=== PATIENT | male | born 1990 | race African-American/Black ===

== ENCOUNTER 2016-08-27 16:16 | Emergency (ER) | payer SELFPAY ==
[2016-08-27 16:22] VITALS: BMI 24.3
--- NOTE | 2016-08-27 16:28 | PDOC ---
History of Present Illness - General Chief Complaint: Nausea/Vomiting Stated Complaint: NUASEA/VOMITING Time Seen by Provider: 08/27/16 16:26 History Source: Patient Exam Limitations: No Limitations - History of Present Illness Travel History: Yes (1 week in [facility]) Timing/Duration: reports: changing over time Quality: reports: moderate Abdominal Pain Onset Location: reports: epigastric Pain Radiation: reports: no radiation Activities at Onset: reports: none Aggravating Factors: improves with: Eating Past History - Past Medical History Allergies/Adverse Reactions: Allergies Allergy/AdvReac Type Severity Reaction Status Date / Time No Known Allergies Allergy Verified 08/27/16 16:17 Home Medications: Ambulatory Orders Ondansetron [Zofran Odt -] 4 mg SL TID PRN #12 od.tablet 08/27/16 Ondansetron [Zofran Odt -] 4 mg SL TID PRN #12 od.tablet 08/27/16 GI Disorders: Yes (gastric ulcer) - Psycho/Social/Smoking Cessation Hx Anxiety: No Suicidal Ideation: No Smoking History: Never smoked Have you smoked in the past 12 months: No Information on smoking cessation initiated: No Substance Use Type: Alcohol Review of Systems - Review of Systems Able to Perform ROS?: Yes Is the patient limited Luxembourgish proficient: No Constitutional: Yes: Weakness HEENTM: No: Symptoms Reported, See HPI, Eye Pain, Blurred Vision, Tearing, Recent change in vision, Double Vision, Cataracts, Ear Pain, Ocular Prothesis, Ear Discharge, Nose Pain, Nose Congestion, Tinnitus, Nose Bleeding, Hearing Loss , Throat Pain, Throat Swelling, Mouth Pain, Dental Problems, Difficulty Swallowing, Mouth Swelling, Other Respiratory: No: Symptoms reported, See HPI, Cough, Orthopnea, Shortness of Breath, SOB with Exertion, SOB at Rest, Stridor, Wheezing, Productive cough, Hemoptysis, Other Cardiac (ROS): No: Symptoms Reported, See HPI, Chest Pain, Edema, Irregular Heart Rate, Lightheadedness, Palpitations, Syncope, Chest Tightness, Other ABD/GI: Yes: Diarrhea, Nausea, Poor Fluid Intake, Vomiting : No: Symptoms Reported, See HPI, Burning, Dysuria, Discharge, Frequency, Flank Pain, Hematuria, Incontinence, Pain, Urgency, Testicular Mass, Testicular Swelling, Lesions, Testicular Pain, Other Musculoskeletal: No: Symptoms Reported, See HPI, Back Pain, Gout, Joint Pain, Joint Swelling, Muscle Pain, Muscle Weakness, Neck Pain, Joint Stiffness, Other Neurological: No: Symptoms reported, See HPI, Headache, Numbness, Paresthesia, Pre-Existing Deficit, Seizure, Tingling, Tremors, Weakness, Unsteady Gait, Ataxia, Dizziness, Other Psychiatric: No: Anxiety, Depression, Frequent Crying, Stressors, Sleep Pattern Change, Emotional Problems, Mood Swings, Change in Appetite, Other Endocrine: No: Symptoms Reported, See HPI, Excessive Sweating, Flushing, Intolerance to Cold, Intolerance to Heat, Increased Hunger, Increased Thirst, Increased Urine, Unexplained Weight Gain, Unexplained Weight Loss, Change in Weight, Other *Physical Exam - Vital Signs Last Vital Signs Temp Pulse Resp BP Pulse Ox 98.3 F 69 18 137/83 100 08/27/16 16:17 08/27/16 16:17 08/27/16 16:17 08/27/16 16:17 08/27/16 16:17 - Physical Exam General Appearance: Yes: Mild Distress, Thin HEENT: positive: Normal ENT Inspection, Normal Voice Neck: positive: Supple Respiratory/Chest: positive: Lungs Clear Cardiovascular: positive: Regular Rhythm, Regular Rate Vascular Pulses: Femoral (R): 2+, Femoral (L): 2+ Gastrointestinal/Abdominal: positive: Other (mild epigastric discomfort) Rectal Exam: positive: deferred Musculoskeletal: positive: Normal Inspection Extremity: positive: Normal Inspection, Normal Range of Motion Integumentary: positive: Normal Color, Warm Neurologic: positive: Fully Oriented, Alert, Motor Strength 5/5 ED Treatment Course - LABORATORY CBC & Chemistry Diagram: 08/27/16 16:40 08/27/16 16:40 *DC/Admit/Observation/Transfer Diagnosis at time of Disposition: Alcoholic hepatitis Qualifiers: Ascites presence: without ascites Qualified Code(s): K70.10 - Alcoholic hepatitis without ascites Gastritis Qualifiers: Gastritis type: other gastritis Chronicity: acute Gastritis bleeding: without bleeding Qualified Code(s): K29.00 - Acute gastritis without bleeding - Discharge Dispostion Disposition: HOME - Prescriptions Prescriptions: Ondansetron [Zofran Odt -] 4 mg SL TID PRN #12 od.tablet PRN Reason: Nausea And/Or Vomiting Ondansetron [Zofran Odt -] 4 mg SL TID PRN #12 od.tablet PRN Reason: Nausea And/Or Vomiting - Patient Instructions Printed Discharge Instructions: DI for Nausea -- Adult - Post Discharge Activity Work/School Note: Back to Work
[2016-08-27] MEDS ORDERED: SODIUM CHLORIDE 1,000 ML IV STA ×2 (16:29→18:05)
[2016-08-27] MEDS ORDERED: ONDANSETRON 4 MG/2 ML VIAL IVPB ONE ×2 (16:29→19:54)
[2016-08-27] MEDS ORDERED: ONDANSETRON 4 MG/2 ML VIAL ONE ×2 (16:59→20:06)
[2016-08-27 17:21] LABS: BASOPHIL 0.8 % (0-2.0); MCH 26.3 pg (25.7-33.7); MEAN CELL VOLUME 82.2 fl (80-96); MEAN PLT VOLUME 8.8 fl (7.5-11.1); PLATELET COUNT 243 K/MM3 (134-434); RDW 13.7 % (11.9-15.9); WHITE BLOOD COUNT 9.4 K/mm3 (4.0-10.0)
[2016-08-27] MEDS ORDERED: METOCLOPRAMIDE HCL INJECTION 10 MG/2 ML VIAL IVPUSH ONE (17:57)
[2016-08-27] MEDS ORDERED: SODIUM CHLORIDE 0.9% 1000 ML INFUS.BAG IV ONE (18:00)
[2016-08-27 18:02] LABS: URINE APPEARANCE CLEAR; URINE BILIRUBIN NEGATIVE (NEGATIVE); URINE BLOOD NEGATIVE (NEGATIVE); URINE COLOR YELLOW; URINE GLUCOSE (UA) NEGATIVE (NEGATIVE); URINE KETONE 1+ (NEGATIVE); URINE LEUK ESTERASE NEGATIVE (NEGATIVE); URINE NITRITE NEGATIVE (NEGATIVE); URINE PROTEIN NEGATIVE (NEGATIVE); URINE UROBILINOGEN NEGATIVE E.U./dl (0.2-1.0)
[2016-08-27] MEDS ORDERED: PANTOPRAZOLE SODIUM 40 MG in SODIUM CHLORIDE 100 ML IVPB ONE (18:05)
[2016-08-27] MEDS ORDERED: METOCLOPRAMIDE HCL INJECTION 10 MG/2 ML VIAL ONE (18:06)
[2016-08-27] MEDS ORDERED: PANTOPRAZOLE SODIUM 100 ML IVPB ONE (18:22)
[2016-08-27 18:29] LABS: ALBUMIN 4.8 g/dl (3.4-5.0); ANION GAP 12 (8-16); BILIRUBIN,TOTAL 0.8 mg/dL (0.2-1.0); CALCIUM 10.3 mg/dL (8.5-10.1); CO2 26 mmol/L (21-32); CREATININE 1.2 mg/dL (0.7-1.3); GLUCOSE,RANDOM 76 mg/dL (74-106); SGOT/AST 121 U/L (15-37); SGPT/ALT 51 U/L (12-78); TOT PROT 8.4 g/dl (6.4-8.2)
[2016-08-27 18:30] LABS: ALK PHOS 55 U/L (45-117)
--- NOTE | 2016-08-27 18:57 | PDOC ---
History of Present Illness - General Chief Complaint: Nausea/Vomiting Stated Complaint: NUASEA/VOMITING Time Seen by Provider: 08/27/16 16:26 History Source: Patient - History of Present Illness Initial Comments: 08/27/16 18:56 26 year old previous healthy male without any significant past medical history presenting with three days of nausea, vomiting, and abdominal pain after a few days of heavy drinking and unprotected sex. He has had bilious but non-bloody emesis with decreased appetite but without diarrhea. Denies fevers, chills, cough, chest pain, palpitations or other symptoms. 08/27/16 18:59 Past History - Past Medical History Allergies/Adverse Reactions: Allergies Allergy/AdvReac Type Severity Reaction Status Date / Time No Known Allergies Allergy Verified 08/27/16 16:17 Home Medications: Ambulatory Orders NK [No Known Home Medication] 08/27/16 GI Disorders: Yes (gastric ulcer) - Psycho/Social/Smoking Cessation Hx Anxiety: No Suicidal Ideation: No Smoking History: Never smoked Have you smoked in the past 12 months: No Information on smoking cessation initiated: No Substance Use Type: Alcohol Review of Systems - Review of Systems Constitutional: Yes: Loss of Appetite. No: Chills, Diaphoresis, Fever HEENTM: No: Eye Pain, Blurred Vision, Tearing Respiratory: No: Cough, Orthopnea, Shortness of Breath Cardiac (ROS): No: Chest Pain, Edema, Irregular Heart Rate, Lightheadedness ABD/GI: No: Abdominal Distended, Abd. Pain w/ defecation, Blood Streaked Bowels , Constipated, Diarrhea : No: Burning, Dysuria, Discharge, Frequency Integumentary: No: Bruising Neurological: Yes: Headache. No: Numbness, Paresthesia, Seizure, Weakness Psychiatric: No: Anxiety Endocrine: No: Symptoms Reported *Physical Exam - Vital Signs Last Vital Signs Temp Pulse Resp BP Pulse Ox 98.3 F 69 18 137/83 100 08/27/16 16:17 08/27/16 16:17 08/27/16 16:17 08/27/16 16:17 08/27/16 16:17 - Physical Exam General Appearance: Yes: Appropriately Dressed, Mild Distress HEENT: positive: EOMI, CAROLIN, Normal ENT Inspection, Normal Voice Respiratory/Chest: positive: Lungs Clear, Normal Breath Sounds, Respiratory Distress, Accessory Muscle Use Cardiovascular: positive: Regular Rhythm, Regular Rate, Edema Gastrointestinal/Abdominal: positive: Normal Bowel Sounds, Tender (tender in his epigastrium and left upper quadrant), Flat, Soft. 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, Fully Oriented, Alert, Normal Mood/ Affect, Normal Response ED Treatment Course - LABORATORY CBC & Chemistry Diagram: 08/27/16 16:40 08/27/16 16:40 - ADDITIONAL ORDERS Additional order review: Laboratory Results 08/27/16 16:40 Sodium 141 Potassium 3.9 Chloride 103 Carbon Dioxide 26 Anion Gap 12 BUN 20 H Creatinine 1.2 Creat Clearance w eGFR > 60 Random Glucose 76 Calcium 10.3 H Total Bilirubin 0.8 AST 121 H ALT 51 Alkaline Phosphatase 55 Total Protein 8.4 H Albumin 4.8 Lipase 116 08/27/16 16:40 RBC 5.28 MCV 82.2 MCHC 32.0 RDW 13.7 MPV 8.8 Neutrophils % 69.0 Lymphocytes % 25.4 Monocytes % 4.8 Eosinophils % 0.0 Basophils % 0.8 - Medications Given in the ED: ED Medications Discontinued Medications Generic Name Dose Route Start Last Admin Trade Name Freq PRN Reason Stop Dose Admin Diphenhydramine HCl 25 mg 08/27/16 17:56 08/27/16 18:12 Benadryl Injection - IVPUSH 08/27/16 17:57 25 mg ONCE ONE Administration Sodium Chloride 1,000 mls @ 1,000 mls/hr 08/27/16 16:29 08/27/16 16:58 Normal Saline - IV 08/27/16 17:28 1,000 mls/hr ASDIR STA Administration Pantoprazole Sodium 40 mg/ 100 mls @ 200 mls/hr 08/27/16 18:05 08/27/16 18:30 Sodium Chloride IVPB 08/27/16 18:34 200 mls/hr ONCE ONE Administration Metoclopramide HCl 10 mg 08/27/16 17:57 08/27/16 18:12 Reglan Injection - IVPUSH 08/27/16 17:58 10 mg ONCE ONE Administration Ondansetron HCl 4 mg 08/27/16 16:29 08/27/16 16:58 Zofran Injection IVPB 08/27/16 16:30 4 mg ONCE ONE Administration Sodium Chloride 1,000 ml 08/27/16 18:00 08/27/16 18:12 Normal Saline - IV 08/27/16 18:01 1,000 ml ONCE ONE Administration Medical Decision Making - Critical Care Time Total Critical Care Time (minutes): 30 Critical Care Statement: The care of this patient involved high complexity decision making to prevent further life threatening deterioration of the patient 's condition and/or to evalute & treat vital organ system(s) failure or risk of failure. - Medical Decision Making 08/27/16 19:06 Patient is a young healthy male with no pas medical history presenting with gastritis without enteritis in the setting of significant alcohol consumption most concerning for alcoholic pancreatitis vs. alcoholic hepatitis vs. acute viral hepatitis. Labs returned WNL with the exception of his AST at 121 with a normal ALT. This indicates alcoholic hepatitis. Viral hepatitis labs will be sent to have on record in case he does not have complete resolution of his symptoms. The patient was signed out to Dr. Alise Villa at 19: 00. 08/27/16 19:11 *DC/Admit/Observation/Transfer Diagnosis at time of Disposition: Alcoholic hepatitis
--- NOTE | 2016-08-27 19:07 | PDOC ---
*Physical Exam - Vital Signs Last Vital Signs Temp Pulse Resp BP Pulse Ox 98.3 F 69 18 137/83 100 08/27/16 16:17 08/27/16 16:17 08/27/16 16:17 08/27/16 16:17 08/27/16 16:17 ED Treatment Course - LABORATORY CBC & Chemistry Diagram: 08/27/16 16:40 08/27/16 16:40 - ADDITIONAL ORDERS Additional order review: Laboratory Results 08/27/16 16:40 Sodium 141 Potassium 3.9 Chloride 103 Carbon Dioxide 26 Anion Gap 12 BUN 20 H Creatinine 1.2 Creat Clearance w eGFR > 60 Random Glucose 76 Calcium 10.3 H Total Bilirubin 0.8 AST 121 H ALT 51 Alkaline Phosphatase 55 Total Protein 8.4 H Albumin 4.8 Lipase 116 08/27/16 16:40 RBC 5.28 MCV 82.2 MCHC 32.0 RDW 13.7 MPV 8.8 Neutrophils % 69.0 Lymphocytes % 25.4 Monocytes % 4.8 Eosinophils % 0.0 Basophils % 0.8 - Medications Given in the ED: ED Medications Discontinued Medications Generic Name Dose Route Start Last Admin Trade Name Freq PRN Reason Stop Dose Admin Diphenhydramine HCl 25 mg 08/27/16 17:56 08/27/16 18:12 Benadryl Injection - IVPUSH 08/27/16 17:57 25 mg ONCE ONE Administration Sodium Chloride 1,000 mls @ 1,000 mls/hr 08/27/16 16:29 08/27/16 16:58 Normal Saline - IV 08/27/16 17:28 1,000 mls/hr ASDIR STA Administration Pantoprazole Sodium 40 mg/ 100 mls @ 200 mls/hr 08/27/16 18:05 08/27/16 18:30 Sodium Chloride IVPB 08/27/16 18:34 200 mls/hr ONCE ONE Administration Metoclopramide HCl 10 mg 08/27/16 17:57 08/27/16 18:12 Reglan Injection - IVPUSH 08/27/16 17:58 10 mg ONCE ONE Administration Ondansetron HCl 4 mg 08/27/16 16:29 08/27/16 16:58 Zofran Injection IVPB 08/27/16 16:30 4 mg ONCE ONE Administration Sodium Chloride 1,000 ml 08/27/16 18:00 08/27/16 18:12 Normal Saline - IV 08/27/16 18:01 1,000 ml ONCE ONE Administration Medical Decision Making - Medical Decision Making Assumed care from Dr. Ortiz Bolaños at 1900. The patient is a 26 yo male just returned from a trip to [place] during which he describes drinking large amounts of alcohol, became very nauseated on return home about 3 days ago. Here in the ED initial dose of Zofran did not provide relief. Subsequent combination of Reglan and Benadryl was given and will now monitor for resolution of nausea. Notably, the patient did have AST elevation and >2:1 ratio of AST:ALT, reportedly epigastric tenderness as well. Orders are entered for hepatitis panel. Most likely this is alcoholic hepatitis with a likely component of gastritis. 08/27/16 22:49 Nausea did not resolve with Benadryl/Reglan combination. One dose of Zofran 8 mg IV given, followed by one dose of Dilaudid 0.5 mg and Mylanta, with relief of symptoms. The patient is able to keep down ice chips and water and appears much improved. He is appropriate for outpatient followup with Rx for Zofran ODT and follow up with his PCP. He is advised to be on liquid diet until Saturday, when he should start the BRAT diet. *DC/Admit/Observation/Transfer Diagnosis at time of Disposition: Alcoholic hepatitis Qualifiers: Ascites presence: without ascites Qualified Code(s): K70.10 - Alcoholic hepatitis without ascites Gastritis Qualifiers: Gastritis type: other gastritis Chronicity: acute Gastritis bleeding: without bleeding Qualified Code(s): K29.00 - Acute gastritis without bleeding - Discharge Dispostion Disposition: HOME Condition at time of disposition: Stable Admit: No - Prescriptions Prescriptions: Ondansetron [Zofran Odt -] 4 mg SL TID PRN #12 od.tablet PRN Reason: Nausea And/Or Vomiting - Patient Instructions Printed Discharge Instructions: DI for Nausea -- Adult - Post Discharge Activity Work/School Note: Back to Work - Attestations Physician Attestion: 08/27/16 23:05 I, Dr. Alise Villa, attest that this document has been prepared under my direction and personally reviewed by me in its entirety. I further attest, that it accurately reflects all work, treatment, procedures and medical decision -making performed by me.
[2016-08-27] MEDS ORDERED: SODIUM CHLORIDE 500 ML IV STA (20:08)
--- NOTE | 2016-08-27 21:03 | PDOC ---
Attending Attestation - Resident Resident Name: Alise Villa - HPI HPI: 08/27/16 21:00 26 yo male who has had several days of gastritis following a week of binge drinking in [facility]. He states he had a h/o Gi ulcers as a teenage -he was seen at another hospital last night but still was symptomatic 08/27/16 23:23 no rebound or guarding on exam but some periumbilical tenderness/lungs cta b/l, [id number] - Physicial Exam PE: 08/27/16 23:25 no rebound or guarding but persistent periumbilcal tenderness - Medical Decision Making 08/27/16 23:24 pt recieved IVF, anti emetics,had persistent c/o pain. CT SCAN negative. RX hodan KLEIN .
[2016-08-27] MEDS ORDERED: MAG HYDROX/AL HYDROX/SIMETH 30 ML UNIT-DOSE CUP PO ONE (21:15)
[2016-08-27] MEDS ORDERED: HYDROmorphone HCL CARPU-JECT 1 MG/1 ML DISP.SYRIN IVPUSH ONE (21:15)
[2016-08-27] MEDS ORDERED: HYDROmorphone HCL CARPU-JECT 1 MG/1 ML DISP.SYRIN ONE (21:22)
[2016-08-27] MEDS ORDERED: MAG HYDROX/AL HYDROX/SIMETH 30 ML UNIT-DOSE CUP ONE (21:25)
[2016-08-27 21:32] VITALS: BP 134/72; PULSE 61; TEMP 98.9
--- NOTE | 2016-08-28 13:46 | EKG ---
Test Reason : Blood Pressure : / mmHG Vent. Rate : 070 BPM Atrial Rate : 070 BPM P-R Int : 186 ms QRS Dur : 098 ms QT Int : 414 ms P-R-T Axes : 061 058 035 degrees QTc Int : 447 ms NORMAL SINUS RHYTHM WITH IACD BORDERLINE IVCD NO PREVIOUS ECGS AVAILABLE PLEASE CORELATE CLINICALLY AND REPEAT IF INDICATED Confirmed by BRITTANY CHAVIRA MD ([id number]) on 08/28/2016 1:45:38 PM Referred By: Confirmed By:BRITTANY CHAVIRA MD
[2016-08-29 14:11] LABS: HEP B SURFACE AB Non Reactive (.)
== END 2016-08-27 23:32 | disposition home or self-care (01) ==
LOC: JER 16:16
PROC: 3E0337Z Introduction of Electrolytic and Water Balance Substance into Peripheral Vein, Percutaneous Approach (ICD-10-PCS; principal; 2016-08-27)
PROC: 3E033GC Introduction of Other Therapeutic Substance into Peripheral Vein, Percutaneous Approach (ICD-10-PCS; 2016-08-27)
PROC: 3E033GC Introduction of Other Therapeutic Substance into Peripheral Vein, Percutaneous Approach (ICD-10-PCS; 2016-08-27)
PROC: 3E033GC Introduction of Other Therapeutic Substance into Peripheral Vein, Percutaneous Approach (ICD-10-PCS; 2016-08-27)
DX: K29.20 Alcoholic gastritis without bleeding (principal); K70.10 Alcoholic hepatitis without ascites; F10.10 Alcohol abuse, uncomplicated
CPT/HCPCS: 36415; 74160-TC; 80053; 81003; 83690; 85025; 86704; 86706; 86708; 86790; 87340; 93005; 93010; 99283-25

== ENCOUNTER 2017-07-12 11:57 | Emergency (ER) | payer SELFPAY ==
[2017-07-12 12:19] VITALS: TEMP 97.4; BMI 23.7
[2017-07-12] MEDS ORDERED: SODIUM CHLORIDE 1,000 ML IV STA (13:06)
[2017-07-12] MEDS ORDERED: PANTOPRAZOLE SODIUM 40 MG VIAL IVPUSH ONE (13:06)
[2017-07-12] MEDS ORDERED: ONDANSETRON 4 MG/2 ML VIAL IVPUSH ONE (13:06)
[2017-07-12] MEDS ORDERED: LIDOCAINE VISCOUS 2% ORAL/TOP 20 ML UNIT-DOSE CUP MM ONE (13:06)
[2017-07-12] MEDS ORDERED: MAG HYDROX/AL HYDROX/SIMETH 30 ML UNIT-DOSE CUP PO ONE (13:06)
[2017-07-12] MEDS ORDERED: FAMOTIDINE IV 20 MG/12 ML VIAL IVPUSH ONE (13:07)
--- NOTE | 2017-07-12 13:11 | PDOC ---
History of Present Illness - General Chief Complaint: Nausea/Vomiting Stated Complaint: ABD PAIN, NAUSEA Time Seen by Provider: 07/12/17 12:29 History Source: Patient, Parent(s) Exam Limitations: No Limitations - History of Present Illness Initial Comments: CHIEF COMPLAINT: 26 y/o male with PMH stomach ulcers (supposed to be taking daily meds but doesn't) c/o nausea, abdominal pain and vomiting x 5 hours. HISTORY OF PRESENT ILLNESS: The patient eats a mostly vegan diet but had a turkey burger last night. He states he started feeling ill in the middle of the night while at work. He denies fever, CP, SOB, back pain, hematuria, dysuria. Vital signs on arrival are notable for respiratory rate of 28. REVIEW OF SYSTEMS: GENERAL/CONSTITUTIONAL: No fever/chills. No weakness. No weight change. HEAD, EYES, EARS, NOSE AND THROAT: No change in vision. No ear pain or discharge. No sore throat. CARDIOVASCULAR: No chest pain or shortness of breath. RESPIRATORY: No cough, wheezing, or hemoptysis. GASTROINTESTINAL: +abdominal pain, nausea, vomiting. No diarrhea. No constipation. GENITOURINARY: No dysuria, frequency, or change in urination. MUSCULOSKELETAL: No joint or muscle swelling or pain. No neck or back pain. SKIN: No rash or easy bruising. NEUROLOGIC: No headache, vertigo, loss of consciousness, or loss of sensation. PHYSICAL EXAM: GENERAL: The patient is awake, alert, and fully oriented, rocking back and forth and moaning in pain while clutching his stomach. CV: RRR, S1/S2, no MRG. Cap refill < 2 sec. ABDOMEN: Soft, non-distended, TTP of epigastric region with guarding. EXTREMITIES: Normal range of motion, no edema. NEUROLOGICAL: Normal speech, normal gait. CN II-XII grossly intact. SKIN: Warm, dry, normal turgor, no rashes or lesions noted. Past History - Past Medical History Allergies/Adverse Reactions: Allergies Allergy/AdvReac Type Severity Reaction Status Date / Time No Known Allergies Allergy Verified 07/12/17 12:06 Home Medications: Ambulatory Orders NK [No Known Home Medication] 07/12/17 COPD: No GI Disorders: Yes (gastric ulcer) - Suicide/Smoking/Psychosocial Hx Smoking History: Current some day smoker Have you smoked in the past 12 months: No Number of Cigarettes Smoked Daily: 4 Information on smoking cessation initiated: No Hx Alcohol Use: No Substance Use Type: Alcohol *Physical Exam - Vital Signs Last Vital Signs Temp Pulse Resp BP Pulse Ox 97.4 F L 81 28 H 131/93 100 07/12/17 12:06 07/12/17 12:06 07/12/17 12:06 07/12/17 12:06 07/12/17 12:06 ED Treatment Course - LABORATORY CBC & Chemistry Diagram: 07/12/17 13:10 07/12/17 13:10 Medical Decision Making - Medical Decision Making A/P: 26 y/o male with gastritis symptoms. Plan is as follows: 1. Labs 2. IV fluids 3. IV protonix/pepcid/zofran 4. PO maalox/viscous lido 5. reassess Patient signed out to Dr. Hernandez *DC/Admit/Observation/Transfer Diagnosis at time of Disposition: Nausea & vomiting, Epigastric pain, Leukocytosis - Discharge Dispostion Disposition: HOME Condition at time of disposition: Stable - Referrals - Patient Instructions Printed Discharge Instructions: DI for Vomiting -- Adult Additional Instructions: You were seen in the ER for upper abdominal pain. We did lab work on your blood and urine and found no abnormalities except a mildly elevated white blood cell count. We took an electrocardiogram which showed no concerning findings on your heart activity. We did a chest x-ray which was also normal. We did an abdominal ultrasound which was also normal. After our assessment, we do not believe you are having a medical emergency at this time, and we believe you are safe to go home. Please take [id number] medications for the pain, and you can try an [id number] antacid like omeprazole 20 mg once a day. 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 Call their clinic [facility], tell them you were seen in the ER, and tell them you need an appointment. Please also follow up with your regular doctor in 1-3 days. Talk with them about your elevated white blood cell count of 12.7k, and have your blood work re-checked. Please come back to the ER at any time, 24 hours a day, for any new or worsening symptoms, like worsened abdominal pain, fever, inability to have a bowel movement or pass gas, chest pain, palpitations , or other symptoms. If you are having severe or life threatening symptoms, or symptoms that make it unsafe to drive or have someone drive you, please call 911. - Post Discharge Activity
[2017-07-12] MEDS ORDERED: PANTOPRAZOLE SODIUM 40 MG/100 ML BAG IVPB ONE (13:13)
[2017-07-12] MEDS ORDERED: LIDOCAINE VISCOUS 2% ORAL/TOP 20 ML UNIT-DOSE CUP ONE (13:13)
[2017-07-12] MEDS ORDERED: ONDANSETRON 4 MG/2 ML VIAL ONE (13:14)
[2017-07-12] MEDS ORDERED: MAG HYDROX/AL HYDROX/SIMETH 30 ML UNIT-DOSE CUP ONE (13:14)
[2017-07-12] MEDS ORDERED: FAMOTIDINE 20 MG/50 ML IVPB 20 MG/50 ML MG IVPB ONE (13:14)
[2017-07-12 13:38] LABS: BASO % 0.6 % (0-2.0); EOS % 0.2 % (0-4.5); HEMATOCRIT 38.4 % (35.4-49); LYMPH % 16.9 % (8-40); MCH 27.3 pg (25.7-33.7); MCHC 33.9 g/dl (32.0-35.9); MEAN CELL VOLUME 80.5 fl (80-96); MONO % 4.2 % (3.8-10.2); NEUT % 78.1 % (42.8-82.8); PLATELET COUNT 251 K/MM3 (134-434); RBC 4.77 M/mm3 (4.00-5.60); RDW 13.7 % (11.9-15.9); WHITE BLOOD COUNT 12.7 K/mm3 (4.0-10.0)
[2017-07-12 14:01] LABS: ALBUMIN 4.5 g/dl (3.4-5.0); ALK PHOS 54 U/L (45-117); ANION GAP 8 (8-16); BILIRUBIN,TOTAL 0.4 mg/dL (0.2-1.0); BLOOD UREA NITROGEN 15 mg/dL (7-18); CALCIUM 9.8 mg/dL (8.5-10.1); CHLORIDE 105 mmol/L (98-107); CO2 27 mmol/L (21-32); CREATININE 1.1 mg/dL (0.7-1.3); GLUCOSE,RANDOM 90 mg/dL (74-106); LIPASE 135 U/L (73-393); POTASSIUM 3.6 mmol/L (3.5-5.1); SGOT/AST 99 U/L (15-37); SGPT/ALT 37 U/L (12-78); SODIUM 140 mmol/L (136-145); TOT PROT 8.2 g/dl (6.4-8.2)
--- NOTE | 2017-07-12 15:25 | PDOC ---
*Physical Exam - Vital Signs Last Vital Signs Temp Pulse Resp BP Pulse Ox 97.4 F L 81 28 H 131/93 100 07/12/17 12:06 07/12/17 12:06 07/12/17 12:06 07/12/17 12:06 07/12/17 12:06 07/12/17 15:22 This is a 26 YOM with h/o PUD (not taking any medication, decided to control it with vegan diet) who p/w abdominal pain s/p eating a turkey burger last night. He has epigastric ttp and dry heaves. Received Maalox, viscous lidocaine, Pepcid , Protonix, Zofran, and 1 liter IVF. He may need further medication with Reglan , Benadryl, and Morphine. Will decide on any need for further imaging workup. ED Treatment Course - LABORATORY CBC & Chemistry Diagram: 07/12/17 13:10 07/12/17 13:10 - ADDITIONAL ORDERS Additional order review: Laboratory Results 07/12/17 13:10 Sodium 140 Potassium 3.6 Chloride 105 Carbon Dioxide 27 Anion Gap 8 BUN 15 D Creatinine 1.1 Creat Clearance w eGFR > 60 Random Glucose 90 Calcium 9.8 Total Bilirubin 0.4 D AST 99 H ALT 37 D Alkaline Phosphatase 54 Total Protein 8.2 Albumin 4.5 Lipase 135 07/12/17 13:10 RBC 4.77 MCV 80.5 MCHC 33.9 RDW 13.7 MPV 8.0 Neutrophils % 78.1 Lymphocytes % 16.9 D Monocytes % 4.2 Eosinophils % 0.2 D Basophils % 0.6 - Medications Given in the ED: ED Medications Discontinued Medications Generic Name Dose Route Start Last Admin Trade Name Freq PRN Reason Stop Dose Admin Al Hydroxide/Mg Hydroxide 30 ml 07/12/17 13:06 07/12/17 13:43 Mylanta Oral Suspension - PO 07/12/17 13:07 30 ml ONCE ONE Administration Famotidine 20 mg in 12 mls @ 144 mls/hr 07/12/17 13:07 07/12/17 13:43 Pepcid 20 Mg/12 Ml Push IVPUSH 07/12/17 13:11 144 mls/hr ONCE ONE Administration Sodium Chloride 1,000 mls @ 1,000 mls/hr 07/12/17 13:06 07/12/17 13:43 Normal Saline - IV 07/12/17 14:05 1,000 mls/hr ASDIR STA Administration Lidocaine HCl 20 ml 07/12/17 13:06 07/12/17 13:43 Xylocaine 2% Viscous Oral - MM 07/12/17 13:07 20 ml ONCE ONE Administration Ondansetron HCl 4 mg 07/12/17 13:06 07/12/17 13:43 Zofran Injection IVPUSH 07/12/17 13:07 4 mg ONCE ONE Administration Pantoprazole Sodium 40 mg 07/12/17 13:06 07/12/17 13:43 Protonix Iv IVPUSH 07/12/17 13:07 40 mg ONCE ONE Administration Medical Decision Making - Medical Decision Making 07/12/17 16:00 Patient c/o continued nausea; Reglan ordered as he notes Zofran did not help at all. 07/12/17 16:36 Patient continues to complain of nausea and states Reglan did not work at all but Reglan is still running into IV. 07/12/17 17:19 Patient states nausea much improved and he wants to go home. Repeat abdominal exam is benign. He is able to keep down PO fluids. The patient has gotten significant relief of symptoms with ED medications. Workup is not concerning for emergency-level pathology at this time. They are appropriate for discharge with close outpatient follow up. They are comfortable with this plan and will follow up with their PCP in 1-3 days. They will take Motrin and/or Tylenol for pain. Referral information is given for GI provider. Return precautions are discussed and they will come back to the ER if necessary. *DC/Admit/Observation/Transfer Diagnosis at time of Disposition: Epigastric pain, Leukocytosis Nausea & vomiting Qualifiers: Vomiting type: unspecified Vomiting Intractability: non-intractable Qualified Code(s): R11.2 - Nausea with vomiting, unspecified - Discharge Dispostion Disposition: HOME Condition at time of disposition: Stable Decision to Admit order: No - Referrals - Patient Instructions Printed Discharge Instructions: DI for Vomiting -- Adult Additional Instructions: You were seen in the ER for upper abdominal pain. We did lab work on your blood and urine and found no abnormalities except a mildly elevated white blood cell count. We took an electrocardiogram which showed no concerning findings on your heart activity. We did a chest x-ray which was also normal. We did an abdominal ultrasound which was also normal. After our assessment, we do not believe you are having a medical emergency at this time, and we believe you are safe to go home. Please take [id number] medications for the pain, and you can try an [id number]-[id number] antacid like omeprazole 20 mg once a day. We are giving you referral information for a saw operator doctor that you should follow up with. Call their clinic [facility], tell them you were seen in the ER, and tell them you need an appointment. Please also follow up with your regular doctor in 1-3 days. Talk with them about your elevated white blood cell count of 12.7k, and have your blood work re-checked. Please come back to the ER at any time, 24 hours a day, for any new or worsening symptoms, like worsened abdominal pain, fever, inability to have a bowel movement or pass gas, chest pain, palpitations , or other symptoms. If you are having severe or life threatening symptoms, or symptoms that make it unsafe to drive or have someone drive you, please call 911. - Post Discharge Activity
[2017-07-12] MEDS ORDERED: METOCLOPRAMIDE HCL INJECTION 10 MG/2 ML VIAL IVPUSH ONE (15:46)
[2017-07-12 17:23] VITALS: BP 141/84; PULSE 60
--- NOTE | 2017-07-16 00:42 | EKG ---
Test Reason : Blood Pressure : / mmHG Vent. Rate : 056 BPM Atrial Rate : 056 BPM P-R Int : 194 ms QRS Dur : 100 ms QT Int : 422 ms P-R-T Axes : 054 065 031 degrees QTc Int : 407 ms SINUS BRADYCARDIA WITH SINUS ARRHYTHMIA OTHERWISE NORMAL ECG WHEN COMPARED WITH ECG OF 27-AUG-2016 21:04, T WAVE AMPLITUDE HAS INCREASED IN ANTERIOR LEADS Confirmed by DYLAN PRINCE MD ([id number]) on 07/16/2017 12:41:56 AM Referred By: Confirmed By:DYLAN PRINCE MD
== END 2017-07-12 17:41 | disposition home or self-care (01) ==
LOC: JER 11:57
PROC: 3E033GC Introduction of Other Therapeutic Substance into Peripheral Vein, Percutaneous Approach (ICD-10-PCS; principal; 2017-07-12)
PROC: 3E033GC Introduction of Other Therapeutic Substance into Peripheral Vein, Percutaneous Approach (ICD-10-PCS; 2017-07-12)
PROC: 3E033GC Introduction of Other Therapeutic Substance into Peripheral Vein, Percutaneous Approach (ICD-10-PCS; 2017-07-12)
DX: R10.13 Epigastric pain (principal); R11.2 Nausea with vomiting, unspecified; D72.829 Elevated white blood cell count, unspecified; Z87.19 Personal history of other diseases of the digestive system; Z91.14 Patient's other noncompliance with medication regimen
CPT/HCPCS: 36415; 80053; 83690; 85025; 93005; 93010; 99283-25; J7030

== ENCOUNTER 2019-01-04 13:43 | Emergency (ER) | payer OTHER ==
[2019-01-04 13:52] VITALS: BP 125/58; PULSE 66; TEMP 98; BMI 23.7
--- NOTE | 2019-01-04 15:05 | PDOC ---
History of Present Illness - General Chief Complaint: Injury Stated Complaint: WOUND Time Seen by Provider: 01/04/19 14:06 History Source: Patient Exam Limitations: No Limitations - History of Present Illness Initial Comments: 01/04/19 14:02 38-year-old male presents to ED status post laceration to his left wrist. 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 Patient states went to an urgent care clinic but was sent to the nearest ER since there was concern for tendon rupture. Patient states is up-to-date on tetanus and denies any medical history. Recent denies decreased range of motion or sensory changes distal of injury. Is this a multiple visit Asthma Patient?: No Timing/Duration: 1 hour Severity: mild Associated Symptoms: reports: denies symptoms Past History - Travel Traveled outside of the country in the last 30 days: No Close contact w/someone who was outside of country & ill: No - Past Medical History Allergies/Adverse Reactions: Allergies Allergy/AdvReac Type Severity Reaction Status Date / Time No Known Allergies Allergy Verified 01/04/19 13:52 Home Medications: Ambulatory Orders Sulfamethoxazole/Trimethoprim [Bactrim Ds -] 1 tab PO BID #14 tablet 01/04/19 COPD: No GI Disorders: Yes (gastric ulcer) - Immunization History Immunization Up to Date: Yes (2017) - Psycho Social/Smoking Cessation Hx Smoking History: Current every day smoker Have you smoked in the past 12 months: No Number of Cigarettes Smoked Daily: 4 Information on smoking cessation initiated: No Hx Alcohol Use: No Substance Use Type: Alcohol Patient Lives Alone: No Lives with/in: parents Review of Systems - Review of Systems Able to Perform ROS?: Yes Constitutional: No: Symptoms Reported Integumentary: Yes: See HPI Neurological: No: Symptoms reported Hematologic/Lymphatic: No: Symptoms Reported *Physical Exam - Vital Signs Last Vital Signs Temp Pulse Resp BP Pulse Ox 98 F 66 18 125/58 L 99 01/04/19 13:49 01/04/19 13:49 01/04/19 13:49 01/04/19 13:49 01/04/19 13:49 - Physical Exam General Appearance: Yes: Nourished, Appropriately Dressed. No: Apparent Distress Comments:: 01/04/19 15:08 2+ left radial pulse Integumentary: positive: Other (Noted 3 cm linear laceration to lateral/ palmar aspect of left wrist with partial rupture of lateral flexor tendon) Neurologic: positive: Fully Oriented, Motor Strength 5/5 (Full range of motion of left hand) Procedures - Splinting Pre-Proc Neuro Vasc Exam: normal Hand-Made Type: orthoglass Splint Type: Yes: Short Arm Post-Proc Neuro Vasc Exam: normal Luis Bandage: 3" Good repositioning: Yes (Flexed position) Medical Decision Making - Medical Decision Making 01/04/19 15:09 Chief complaint: Status post laceration to left wrist up-to-date on tetanus. No complaints except for localized discomfort Exam: 3 cm lac with partial rupture of lateral flex and tender. Normal sensory and range of motion Plan: Washout performed sealed with Steri-Strips and placed in a short arm splint in a semi-flexion position . I will consult Dr. tyson 01/04/19 15:11 Case discussed with hand surgeon and will see patient in office on Saturday for consultation. Patient prescribed antibiotics prophylactically and given splint instructions Discharge - Discharge Information Problems reviewed: Yes Clinical Impression/Diagnosis: Laceration, Flexor tendon laceration of hand with open wound Condition: Improved Disposition: HOME - Additional Discharge Information Prescriptions: Sulfamethoxazole/Trimethoprim [Bactrim Ds -] 1 tab PO BID #14 tablet - Follow up/Referral Referrals: Jairon Tyson MD [Staff Physician] - - Patient Discharge Instructions Patient Printed Discharge Instructions: DI for Open Laceration Additional Instructions: Keep your hand elevated. Follow-up with Follow up with hand doctor on Saturday but call for an appointment - Post Discharge Activity Work/Back to School Note: Back to Work
[2019-01-04] MEDS ORDERED: SULFAMETHOXAZOLE/TRIMETHOPRIM 800MG/160MG D.S. TABLET PO ONE (15:18)
[2019-01-04] MEDS ORDERED: SULFAMETHOXAZOLE/TRIMETHOPRIM 800MG/160MG D.S. TABLET ONE (15:36)
== END 2019-01-04 15:45 | disposition home or self-care (01) ==
LOC: JER 13:43
PROC: 2W3DX1Z Immobilization of Left Lower Arm using Splint (ICD-10-PCS; principal; 2019-01-04)
DX: S66.822A Laceration of other specified muscles, fascia and tendons at wrist and hand level, left hand, initial encounter (principal); W27.8XXA Contact with other nonpowered hand tool, initial encounter; Y93.89 Activity, other specified; Y92.512 Supermarket, store or market as the place of occurrence of the external cause; Y99.0 Civilian activity done for income or pay
CPT/HCPCS: 99282-25

== ENCOUNTER 2019-01-08 06:10 | Day surgery (SDC) | payer OTHER ==
[2019-01-07 11:05] VITALS: BMI 24.3
[2019-01-08] MEDS ORDERED: MIDAZOLAM HCL 2 MG/2 ML SINGLE DOSE VIAL ONE (07:07)
[2019-01-08] MEDS ORDERED: LIDOCAINE HCL 2% (20ML MULTI-DOSE VIAL) NR ONE (07:10)
[2019-01-08] MEDS ORDERED: BUPIVACAINE HCL 0.25% 125 MG/50 ML VIAL ONE (07:10)
[2019-01-08] MEDS ORDERED: ceFAZolin SODIUM 1 GM VIAL ONE (07:12)
[2019-01-08] MEDS ORDERED: LIDOCAINE HCL/PF 2% SDV 5ML VIAL ONE (07:12)
[2019-01-08] MEDS ORDERED: PROPOFOL 20 ML ONE ×3 (07:12)
[2019-01-08] MEDS ORDERED: EPHEDRINE SULFATE/0.9% NACL/PF 50 MG/10 ML SYRINGE NR ONE (07:13)
[2019-01-08] MEDS ORDERED: SUCCINYLCHOLINE CHLORIDE 200 MG/10 ML SYRINGE ONE (07:13)
[2019-01-08] MEDS ORDERED: SODIUM CHLORIDE 0.9% P/F 10 ML VIAL IJ ONE ×2 (07:15→07:16)
[2019-01-08] MEDS ORDERED: ACETAMINOPHEN INJECTION 100 ML IVPB ONE (07:22)
[2019-01-08] MEDS ORDERED: ONDANSETRON 4 MG/2 ML VIAL ONE (07:55)
[2019-01-08] MEDS ORDERED: DEXAMETHASONE SOD PHOSPHATE 4 MG/1 ML VIAL ONE (07:55)
[2019-01-08] MEDS ORDERED: KETOROLAC TROMETHAMINE 30 MG/1 ML VIAL ONE (07:56)
[2019-01-08] MEDS ORDERED: BUPIVACAINE HCL/PF 0.25% (2.5MG/ML) 10 ML VIAL IJ ONE (08:34)
[2019-01-08] MEDS ORDERED: ONDANSETRON 4 MG/2 ML VIAL IVPUSH PRN (08:56)
[2019-01-08] MEDS ORDERED: oxyCODONE HCL 5 MG TABLET PO PRN ×2 (08:56)
[2019-01-08] MEDS ORDERED: LACTATED RINGERS SOLUTION 1,000 ML IV SCH (09:00)
--- NOTE | 2019-01-08 09:23 | OP ---
DATE OF OPERATION: 01/08/2019 PREOPERATIVE DIAGNOSIS: Left distal forearm laceration with likely flexor carpi ulnaris tendon laceration. POSTOPERATIVE DIAGNOSES: 1. Left forearm traumatic laceration. 2. Left wrist flexor carpi ulnaris 50% laceration. OPERATIVE PROCEDURES: 1. Left wrist/forearm wound exploration with debridement. 2. Repair, left flexor carpi ulnaris tendon. SURGEON: Jairon Tyson MD NEW PRODUCT TRAINER: MARISABEL Hughes ANESTHESIA: General. COMPLICATIONS: None. ESTIMATED BLOOD LOSS: Minimal. INDICATION FOR PROCEDURE: The patient is a 28-year-old male who sustained the above injury earlier this week. He was indicated for operative treatment. Risks, benefits, and alternatives were discussed with him at length, and proper informed consent was obtained. PROCEDURE: After proper identification of patient and correct operative site, patient brought to the operating room, placed supine on the table. All prominences were well padded. General anesthesia provided by the anesthesiologist, and intravenous antibiotics were given. Timeout procedure was performed. Left upper extremity was prepped and draped in usual sterile fashion. Patient's laceration was an oblique laceration measuring approximately 3 cm over the flexor carpi ulnaris tendon on the volar ulnar aspect, about 1 cm proximal to the wrist crease. The incision had not been sutured by the ER and was open. It was clear at this point that there was a laceration of the flexor carpi ulnaris tendon, and the incision was enlarged proximally and distally in an oblique fashion in a zigzag formation. Once blunt dissection was performed through the subcutaneous tissues, there was no damage to the ulnar nerve and ulnar artery. No other tendon injury was noted. Flexor carpi ulnaris was lacerated approximately 50% in oblique fashion in its ulnar aspect. The radial aspect was intact. The ends were freshened and repaired using Krackow-type sutures with 4 total core sutures and a freshening 5-0 nylon epitendinous stitch. This provided secure, stable fixation of the tendon laceration. This was taken through range of motion. There was no tension on the repair. Wound was irrigated and repaired with 5-0 fast-absorbing plain gut sutures. Sterile dressings were applied. Splint was placed. Patient was reversed from anesthesia and brought to recovery in stable condition. He tolerated procedure well. Anoop Oliveira, the assistant spa director, was integral throughout the procedure. Procedure could not have been performed without a skilled operative assistant spa director. Rosendo MONTIEL/[id number]
[2019-01-08 09:53] VITALS: TEMP 97.7
[2019-01-08 10:12] VITALS: BP 114/78; PULSE 54
== END 2019-01-08 10:26 | disposition home or self-care (01) ==
LOC: FASU 06:10
PROVIDERS: ATTEND Orthopaedic Surgery Hand Surgery
PROC: 0HQEXZZ Repair Left Lower Arm Skin, External Approach (ICD-10-PCS; 2019-01-08)
PROC: 0LQ60ZZ Repair Left Lower Arm and Wrist Tendon, Open Approach (ICD-10-PCS; principal; 2019-01-08 08:00)
DX: S56.222A Laceration of other flexor muscle, fascia and tendon at forearm level, left arm, initial encounter (principal); S61.512A Laceration without foreign body of left wrist, initial encounter; X58.XXXA Exposure to other specified factors, initial encounter; Y93.9 Activity, unspecified; Y92.9 Unspecified place or not applicable
CPT/HCPCS: 94760; J0131

== ENCOUNTER 2024-01-02 10:02 | Emergency (ER) | payer SELFPAY ==
[2024-01-02 10:25] VITALS: BP 121/77; PULSE 71; RESP 16; TEMP 97.8; BMI 23.1
[2024-01-02] MEDS ORDERED: HALOPERIDOL LACTATE 5 MG/ML ONE (10:56)
[2024-01-02] MEDS ORDERED: FAMOTIDINE 20 MG TABLET ONE (10:56)
[2024-01-02] MEDS: FAMOTIDINE 20 MG TABLET PO ONE (11:22)
[2024-01-02] MEDS: HALOPERIDOL LACTATE 5 MG/ML IM ONE (11:22)
[2024-01-02] MEDS ORDERED: MAG HYDROX/AL HYDROX/SIMETH 30 ML UNIT-DOSE CUP ONE (11:42)
[2024-01-02] MEDS: MAG HYDROX/AL HYDROX/SIMETH 30 ML UNIT-DOSE CUP PO ONE (11:48)
[2024-01-02 16:39] LABS: HIV INTERPRETATION NEGATIVE (NEGATIVE)
== END 2024-01-02 12:53 | disposition home or self-care (01) ==
LOC: JER 10:02
PROC: 3E023GC Introduction of Other Therapeutic Substance into Muscle, Percutaneous Approach (ICD-10-PCS; principal; 2024-01-02)
DX: R10.13 Epigastric pain (principal); R11.2 Nausea with vomiting, unspecified; R19.7 Diarrhea, unspecified
CPT/HCPCS: 36415; 86803; 87389; 99284-25